=== PATIENT | female | born 1985 | race Caucasian/White ===

== ENCOUNTER 2017-07-10 22:04 | Emergency (ER) | payer OTHER ==
[2017-07-10 22:22] VITALS: BP 114/59; BMI 32.4
[2017-07-10 22:41] LABS: AMNISURE ROM TEST THERE IS A RUPTURE (NO RUPTURE)
--- NOTE | 2017-07-11 07:44 | DR.PREG ---
HPI - PCP Primary Care Physician: FRANCISCA - Chief Complaint Chief Complaint:: PT STATES" MY WATER BROKE AROUND 9 TONIGHT" PT DENIES ANY PAIN AT THIS TIME PT IS SCHEDULED FOR INDUCTION SUNDAY MORNING [id number] PT IS G 6 P 4 A 1 - Source History Provided: Patient - Mode of Arrival Mode of Arrival: Ambulatory - Timing Onset of Chief Complaint: 07/10/17 PMH - PMH Past Medical History: No Past Surgical History: Yes Past Surgical History Comment: BREAST AUGMENTATION TUBAL REVERSAL - Family History History of Family Medical Conditions: No - Social History Does any household member use tobacco: No Alcohol Use: None Do you use any recreational Drugs:: No Lives With: Family Lives Where: Home - infectious screening In the last 2 months have you had wt loss of >10#?: NO Have you had fever, night sweats or hemotysis?: No Have you traveled outside the country in the last 6 months?: No Isolation: Standard PE - Vital Signs Vitals: Temperature 99.3 F Pulse Rate 91 Respiratory Rate 18 Blood Pressure 114/59 O2 Sat by Pulse Oximetry 98 ROR - Labs Reviewed Laboratory: [id number] There is a rupture (NO RUPTURE) 07/10/17 22:26 - Discharge Plan Disposition: ADMITTED INPATIENT Condition: Stable - Follow ups/Referrals Follow ups/Referrals: CARSON ESPINOSA [Primary Care Provider] - 3 days - Instructions
== END 2017-07-10 23:15 | disposition other institution (70) ==
LOC: ER 22:15
DX: Z3A.38 38 weeks gestation of pregnancy (principal)
CPT/HCPCS: 84112; 99284

== ENCOUNTER 2017-07-10 23:20 | Inpatient (IN) | payer OTHER ==
[2017-07-10] MEDS ORDERED: REGLAN INJ 10 MG VIAL IVP PRN (23:22)
[2017-07-10] MEDS ORDERED: PHENERGAN INJ 25 MG IV PRN (23:22)
[2017-07-10] MEDS ORDERED: MORPHINE SULFATE INJ 2 MG INJ IVP PRN (23:22)
[2017-07-10] MEDS ORDERED: NUBAIN INJ 200 MG VIAL MULTIDOSE IVP PRN (23:22)
[2017-07-10] MEDS ORDERED: PITOCIN IVP ONE (23:22)
[2017-07-10] MEDS ORDERED: D5 1/2 NS 1000 ML 1,000 ML IV SCH (23:22)
[2017-07-10] MEDS ORDERED: D5LR 1L W PITOCIN 10 UNITS/L 10 UNITS/1,000 ML BAG IV PRN (23:22)
[2017-07-10] MEDS ORDERED: D5 1/2 NS 1L W PITOCIN 20 UNITS/L 20 UNITS/1,000 ML BAG IV ONE (23:29)
[2017-07-11] MEDS ORDERED: NUBAIN INJ 10 ONE (04:19)
[2017-07-11] MEDS ORDERED: MORPHINE SULFATE INJ 2 MG INJ ONE (06:03)
[2017-07-11] MEDS ORDERED: LR 1000 ML IV 1,000 ML IV ONE (06:25)
[2017-07-11] MEDS ORDERED: FENTANYL INJ 100 mcg ONE (06:25)
[2017-07-11] MEDS ORDERED: NAROPIN EPIDURAL 0.2% + FENTANYL 90MCG 60 ML EPI ONE (06:25)
--- NOTE | 2017-07-11 06:40 | DR.OB ---
OB Quick Note - Assessment/Plan Assessment/Plan: L&D 07/11/17 at 6:15am Pitocin=20mu/min. S-No complaint except pain with CTX. O-Afebrile,VSS NFD=823 with good LTV, +accel, no decel. CTX=q 2 min., strong by palpation. CVX=4cm/75%/0/VTX Clear fluid. IUPC and FSE placed. A-IUP at 38 5/7 weeks with SROM Opioid abuse P-Cont. pitocin induction Anticipate
[2017-07-11] MEDS ORDERED: MOTRIN TAB 800 MG PO PRN ×2 (07:13→09:47)
[2017-07-11] MEDS ORDERED: PHENERGAN INJ 25 MG IV PRN ×2 (07:13→09:47)
--- NOTE | 2017-07-11 07:21 | DR.OB ---
OB Quick Note - Assessment/Plan Assessment/Plan: Delivery Note [employer]LY[employer] 7:15am Patient complete and pushing. Head delivered over intact perineum. Nuchal cord x 1 reduced. Nose and mouth bulb suctioned. Body delivered over intact perineum. Cord clamped x 2 and cut. Infant handed to attendant. Cord sent for gases. Placenta delivered spontaneously / intact / 3 vessel cord. No CVX / vaginal / perineal tears. Viable female , VTX/OA, wt=7"4" and 9/9 , stable to NBN. Mother stable to RR. RDX=407yd.
[2017-07-11] MEDS ORDERED: D5 1/2 NS 1000 ML 1,000 ML with PITOCIN 20 UNITS IV SCH ×4 (08:00→16:00)
[2017-07-11] MEDS ORDERED: AMBIEN PO PRN (09:47)
[2017-07-11] MEDS ORDERED: ADACEL TDaP IM ONE (09:47)
[2017-07-11] MEDS ORDERED: MILK OF MAGNESIA PO PRN (09:47)
[2017-07-11] MEDS ORDERED: DERMOPLAST SPRAY TOP PRN (09:47)
[2017-07-11] MEDS ORDERED: REGLAN INJ 10 MG VIAL IVP PRN (09:47)
[2017-07-11] MEDS: PATIENT'S HOME MEDICATION PO SCH ×2 (10:25→21:10)
[2017-07-11] MEDS: ZANTAC PO SCH ×2 (10:54→21:10)
[2017-07-11] MEDS: PRENATAL PLUS PO SCH (10:54)
[2017-07-12 06:01] LABS: HEMATOCRIT 27.2 % (36.0-47.0); HEMOGLOBIN 9.4 g/dL (12.0-16.0)
[2017-07-12] MEDS: PATIENT'S HOME MEDICATION PO SCH (08:49)
[2017-07-12] MEDS: ZANTAC PO SCH (08:49)
[2017-07-12] MEDS: PRENATAL PLUS PO SCH (08:49)
[2017-07-12 12:20] VITALS: BP 117/59
== END 2017-07-12 13:30 | disposition home or self-care (01) | DRG 775 ==
LOC: LD 23:20 → MED/SURG 07-11 08:13
PROVIDERS: ADMIT Specialist; ATTEND Specialist
PROC: 10E0XZZ Delivery of Products of Conception, External Approach (ICD-10-PCS; principal; 2017-07-10)
PROC: 3E0234Z Introduction of Serum, Toxoid and Vaccine into Muscle, Percutaneous Approach (ICD-10-PCS; 2017-07-11)
DX: O99.323 Drug use complicating pregnancy, third trimester (principal); Z37.0 Single live birth; Z3A.38 38 weeks gestation of pregnancy; F11.10 Opioid abuse, uncomplicated; Z01.818 Encounter for other preprocedural examination; Z34.83 Encounter for supervision of other normal pregnancy, third trimester
CPT/HCPCS: 36415; 59409; 80048; 80307; 81001; 84112; 85014; 85018; 85025; 86592; 86850; 86900; 86901; 99284; A4222; S0197; G0434; J2270; J2300; J2590; J3010; J7042; J7120

== ENCOUNTER → 2017-07-10 | Outpatient (CLI) | payer OTHER ==
[2017-07-10 10:10] LABS: BLOOD UREA NITROGEN 5 mg/dL (7-18); CARBON DIOXIDE 25.7 mmol/L (21-32); CHLORIDE 104 mmol/L (98-107); SODIUM 138 mmol/L (136-145); eGFR BLACK RACES > 60 (>60); eGFR NON BLACK RACES > 60 (>60)
[2017-07-10 10:11] LABS: BILIRUBIN,URINE NEGATIVE (NEGATIVE); BLOOD/HEMOGLOBIN,URINE NEGATIVE (NEGATIVE); GLUCOSE, URINE NEGATIVE (NEGATIVE); KETONES,URINE NEGATIVE (NEGATIVE); LEUKOCYTE ESTERASE ,URINE 2+ (NEGATIVE); NITRITES,URINE NEGATIVE (NEGATIVE); PROTEIN,URINE NEGATIVE (NEGATIVE); UROBILINOGEN,URINE NORMAL (NORMAL)
[2017-07-10 10:15] LABS: BASOPHILS # (AUTO) 0.1 X10^3/uL (0.0-0.1); BASOPHILS % (AUTO) 0.3 % (0.2-1.0); EOSINOPHILS # (AUTO) 0.2 x10^3/uL (0.0-0.2); EOSINOPHILS % (AUTO) 1.2 % (0.9-2.9); HEMATOCRIT 28.9 % (36.0-47.0); HEMOGLOBIN 10.2 g/dL (12.0-16.0); LYMPHOCYTES % (AUTO) 11.7 % (21.0-51.0); MEAN CORPUSCULAR HEMOGLOBIN 32.5 pg (27.0-34.0); MEAN CORPUSCULAR HGB CONC 35.2 g/dL (33.0-35.0); MEAN CORPUSCULAR VOLUME 92.3 fL (80.0-100.0); MEAN PLATELET VOLUME 7.6 fL (7.4-11.0); MONOCYTES # (AUTO) 0.7 x10^3/uL (0.3-0.8); MONOCYTES % (AUTO) 3.9 % (0.0-13.0); NEUTROPHILS # (AUTO) 14.4 x10^3/uL (2.2-4.8); NEUTROPHILS % (AUTO) 82.9 % (42.0-75.0); PLATELET COUNT 378 X10^3/uL (150.0-450.0); RED BLOOD COUNT 3.13 X10^6/uL (3.5-5.4); RED CELL DISTRIBUTION WIDTH 12.9 % (11.6-16.5); WHITE BLOOD COUNT 17.4 X10^3/uL (3.6-10.0)
[2017-07-10 10:19] LABS: APPEARANCE,URINE SLIGHTLY HAZY (CLEAR); COLOR,URINE YELLOW (YELLOW)
[2017-07-10 10:20] LABS: BACTERIA,URINE TRACE /HPF (NEGATIVE); RBC,URINE 0-2 /HPF (NONE SEEN); SQUAMOUS EPITHELIAL CELL,UR NUMEROUS /HPF (NEGATIVE)
== END ==
LOC: LAB 09:22
PROVIDERS: ATTEND Specialist
DX: Z01.818 Encounter for other preprocedural examination (principal); Z34.83 Encounter for supervision of other normal pregnancy, third trimester
CPT/HCPCS: 36415; 80048; 80307; 81001; 85025; 86592; 86850; 86900; 86901; G0434